=== PATIENT | male | born 1985 | race Caucasian/White ===

== ENCOUNTER 2020-08-20 11:45 | Outpatient (CLI) | payer OTHER, SELFPAY ==
--- NOTE | ~2020-08-20 | XR_ITS ---
EXAMINATION: XR thoracic spine 3V DATE: 08/20/2020 12:23 INDICATION: Mid back pain TECHNIQUE: AP, lateral and lateral swimmer's views of the thoracic spine were obtained. COMPARISON: 01/13/2012 FINDINGS: There is no fracture. Mild anterior wedging is seen in the lower thoracic spine, likely phy siologic The vertebral body heights and alignment are otherwise maintained. There is mild loss of int ervertebral disc space height at multiple levels in the thoracic spine. Small degenerative osteophyte s project from the anterior endplates of multiple vertebral bodies. IMPRESSION: 1. Mild thoracic spondylosis without acute findings. Reviewed, dictated and finalized at location A. EMATICS TECHNICIAN
--- NOTE | ~2020-08-20 | XR_ITS ---
XR lumbar spine 2-3V 08/20/2020 12:23 Indication: Low back pain for one year Procedure: 3 views lumbar spine Comparison: No prior studies for comparison. Findings: There is mild disc narrowing at L5-S1. There are facet degenerative changes at L4-5 and L5- S1. No fracture or traumatic malalignment. No evidence for spondylolisthesis. Pedicles intact. No fra cture or traumatic malalignment. Impression: 1: Mild lumbar spondylosis. Reviewed, dictated and finalized at location B. AVER WOOD Impression: 1: Mild lumbar spondylosis.
== END 2020-08-20 11:46 | disposition home or self-care (01) ==
PROVIDERS: PCP Internal Medicine; Visit Provider Internal Medicine
DX: M54.6 Pain in thoracic spine (principal); M54.5 Low back pain
CPT/HCPCS: 72072; 72100

== ENCOUNTER → 2020-09-02 15:27 | Outpatient (CLI) | payer OTHER, SELFPAY ==
--- NOTE | ~2020-09-02 | MR_ITS ---
EXAMINATION: MR thoracic spine wo con EXAM DATE: 09/02/2020 16:21 INDICATION: Thoracic spondylosis. Right-sided mid back pain. TECHNIQUE: Multi-sequential, multiplanar MR images of the thoracic spine were obtained without contra st. Sagittal T1, T2, T2 fat saturation, axial T2 weighted images reviewed. Correlation is made to [facility] x-ray 08/20/2020. FINDINGS: There is mild mid thoracic dextroscoliosis. Slight loss of lower thoracic kyphosis. Mild to moderate mid and lower thoracic disc disease. Vertebral body heights are maintained. There are mild mid and lower thoracic disc bulges and protrusions not causing central canal stenosis. Mild mid and l ower thoracic facet arthropathy. There is moderate right neural foraminal stenosis at T8-9, mild to moderate at T7-8. Otherwise no mor e than mild thoracic neural foraminal stenosis. The spinal cord signal intensity and intrinsic morpho logy is normal. There are no suspicious marrow signal abnormalities. Paraspinal soft tissue is unr emarkable. IMPRESSION: 1. Mild to moderate mid and lower thoracic spondylosis. 2. Mild dextroscoliosis. Reviewed, dictated and finalized at location B. T AND PATTERN DESIGNER
== END ==
PROVIDERS: PCP Internal Medicine; Visit Provider Internal Medicine
DX: M47.814 Spondylosis without myelopathy or radiculopathy, thoracic region (principal); M41.84 Other forms of scoliosis, thoracic region
CPT/HCPCS: 72146